=== PATIENT | female | born 1965 | race Caucasian/White ===

== ENCOUNTER 2023-09-11 21:38 | Emergency (ER) | payer OTHER ==
[~2023-09-11] VITALS: Ht 165.1 cm; Wt 63.5 kg
[2023-09-11 21:48] VITALS: O2SAT 98
[2023-09-11 23:35] VITALS: BP 121/74; TEMP 97.6
== END 2023-09-11 23:25 | disposition home or self-care (01) ==
LOC: ER 21:42
DX: S83.8X2A Sprain of other specified parts of left knee, initial encounter (principal); S20.211A Contusion of right front wall of thorax, initial encounter; Z98.890 Other specified postprocedural states; W01.0XXA Fall on same level from slipping, tripping and stumbling without subsequent striking against object, initial encounter; Y93.89 Activity, other specified; Y92.89 Other specified places as the place of occurrence of the external cause; Y99.8 Other external cause status
CPT/HCPCS: 70450; 71101; 73590; A4606; A4663

== ENCOUNTER 2024-08-17 19:03 | Emergency (ER) | payer OTHER ==
[~2024-08-17] VITALS: Ht 172.7 cm; Wt 72.6 kg
[2024-08-17] MEDS ORDERED: NAPR-1192 PO (19:50)
[2024-08-17] MEDS ORDERED: NAPROXEN 500 MG TABLET ONE (19:58)
[2024-08-17] MEDS: NAPROXEN 500 MG TABLET PO ONE (20:00)
[2024-08-17 20:09] VITALS: BP 97/59; O2SAT 98
== END 2024-08-17 20:10 | disposition home or self-care (01) ==
LOC: ER 19:07
DX: R51.9 Headache, unspecified (principal); Z88.7 Allergy status to serum and vaccine
CPT/HCPCS: A4606; A4663

== ENCOUNTER 2024-10-03 20:38 | Emergency (ER) | payer OTHER ==
[~2024-10-03] VITALS: Ht 165.1 cm; Wt 79.8 kg
[~2024-10-03 20:38] MED LIST: NAPR-1192 PO
[2024-10-03] MEDS ORDERED: ACETAMINOPHEN 500 MG TABLET ONE (21:12)
[2024-10-03] MEDS: ACETAMINOPHEN 500 MG TABLET PO ONE (21:13)
[2024-10-03] MEDS ORDERED: METH4TAB3 PO (21:16)
[2024-10-03] MEDS ORDERED: FLUT16SP16 BNOSTRILS (21:16)
[2024-10-03] MEDS ORDERED: ACET-2154 PO (21:16)
[2024-10-03] MEDS ORDERED: DOXY-326 PO (21:16)
[2024-10-03] MEDS: DOXYCYCLINE HYCLATE 100 MG TABLET PO ONE (21:20)
[2024-10-03] MEDS ORDERED: DOXYCYCLINE HYCLATE 100 MG TABLET ONE (21:20)
[2024-10-03 21:22] VITALS: BP 119/69; TEMP 98.1; O2SAT 97
== END 2024-10-03 21:29 | disposition home or self-care (01) ==
LOC: ER 20:47
DX: J01.90 Acute sinusitis, unspecified (principal); J02.9 Acute pharyngitis, unspecified; H92.01 Otalgia, right ear; Z88.7 Allergy status to serum and vaccine
CPT/HCPCS: 99284; J7512; A4606; A4663; A9150